=== PATIENT | male | born 1960 | race American Indian/Alaskan Native ===

== ENCOUNTER → 2019-08-14 | Outpatient (CLI) | payer OTHER ==
[~2019-08-14] MED LIST: ACIDOPHILUS1 EAC1 PO; ASPI81CH PO; ATOR20 PO; CHOL10002 PO; CIPR500 PO; METR500 PO; Omeprazole20 M1 PO
== END | disposition home or self-care (01) ==
LOC: LAB 19:38 → LAB SHORT 19:38
DX: L08.9 Local infection of the skin and subcutaneous tissue, unspecified (principal)
CPT/HCPCS: 87070; 87075; 87205

== ENCOUNTER 2020-11-25 21:47 | Inpatient (IN) | payer OTHER ==
[~2020-11-25] VITALS: Ht 175.3 cm; Wt 95.6 kg
[2020-11-25 22:43] LABS: BASOPHILS ABSOLUTE AUTO 0.05 K/mm3 (0.00-0.23); BASOPHILS PERCENT AUTO 1 % (0-2); EOSINOPHILS ABSOLUTE AUTO 0.32 K/mm3 (0.00-0.68); EOSINOPHILS PERCENT AUTO 3 % (0-6); Hematocrit 43.3 % (37.0-53.0); Hemoglobin 14.4 g/dL (13.5-17.5); IMMATURE GRAN ABSOLUTE AUTO 0.06 K/mm3 (0.00-0.10); IMMATURE GRAN PERCENT AUTO 1 % (0-1); LYMPHOCYTES ABSOLUTE AUTO 2.75 K/mm3 (0.84-5.20); LYMPHOCYTES PERCENT AUTO 26 % (21-46); MONOCYTES ABSOLUTE AUTO 1.27 K/mm3 (0.16-1.47); MONOCYTES PERCENT AUTO 12 % (4-13); Mean Corpuscular HGB 31.9 pg (26.0-34.0); Mean Corpuscular HGB Conc 33.3 g/dL (31.5-36.5); Mean Corpuscular Volume 96 fL (80-100); Mean Platelet Volume 9.5 fL (9.1-12.4); NEUTROPHILS ABSOLUTE AUTO 6.09 K/mm3 (1.96-9.15); NEUTROPHILS PERCENT AUTO 58 % (41-73); Platelet Count 230 K/mm3 (150-400); RDW Coefficient Variation 13.7 % (11.7-14.2); RDW Standard Deviation 48.6 fL (35.1-46.3); Red Blood Cell Count 4.52 M/mm3 (4.30-5.90); White Blood Cell Count 10.54 K/mm3 (4.00-11.30)
[2020-11-25 23:00] LABS: Alanine Aminotransfer (ALT/SGP 44 U/L (12-78); Albumin, Blood 3.5 g/dL (3.4-5.0); Albumin/Globulin Ratio 0.9 (0.8-1.8); Alk Phos 102 U/L (50-136); Anion Gap 2 mmol/L (6-16); Aspartate Aminotrans (AST/SGOT 21 U/L (12-37); Bilirubin, Total 0.3 mg/dL (0.1-1.0); Blood Urea Nitrogen 14 mg/dL (8-24); Bun/Creatinine Ratio 19.4 (12.0-20.0); CO2, Blood 29 mmol/L (21-32); Calcium, Blood 9.3 mg/dL (8.5-10.1); Chloride, Blood 109 mmol/L (98-108); Creatinine, Blood 0.72 mg/dL (0.60-1.20); Glomerular Filtration Rate >60 (60-); Glucose, Blood 101 mg/dL (70-99); Potassium, Blood 4.1 mmol/L (3.5-5.5); Sodium, Blood 140 mmol/L (136-145); Total Protein, Blood 7.5 g/dL (6.4-8.2)
[2020-11-26] MEDS ORDERED: ATOR40TA PO (00:59)
[2020-11-26] MEDS ORDERED: Vitamin B Comple1 EA PO (04:03)
[2020-11-26] MEDS ORDERED: LOSA25 PO (04:04)
--- NOTE | 2020-11-26 04:21 | NUR ---
ADMIT NEW ER ADMIT WITH PARTIAL BOWEL OBSTRUCTION. PT ARRIVAL TO UNIT VIA W/C AND INDEPENDENTLY AMBULATED TO BED. ALERT AND ORIENTED. REPORTS ABD PAIN IS TOLERABLE AT THIS TIME. BTS HYPERACTIVE X4 QUADRANTS AND ABD MODERATELY DISTENDED. NPO AT THIS TIME. IVF INFUSING FROM ER. ORIENTED TO ROOM AND CALL LIGHT. WILL CONT TO MONITOR.
--- NOTE | 2020-11-26 07:10 | NUR ---
RECVD REPORT FROM PREVIOUS SHIFT MURIEL CROWLEY. PT SLEEPING IN BED, BED IN LOWEST POSITION, BED RAILS UP X 2, CALL LIGHT WITHIN REACH. WHITEBOARD UPDATED.
--- NOTE | 2020-11-26 08:11 | NUR ---
pt going out for a walk
--- NOTE | 2020-11-26 10:35 | NUR ---
dr flores consulting with pt and spouse
--- NOTE | 2020-11-26 14:14 | NUR ---
daysurgery rn in with pt prepping for surgery
--- NOTE | 2020-11-26 14:25 | NUR ---
PT TAKEN TO DAYSURGERY FOR PROCEDURE VIA STRETCHER
--- NOTE | 2020-11-26 14:37 | NUR ---
History, Chart, Medications and Allergies reviewed before start of procedure. Lungs clear T/O to Auscultation. Patient confirms NPO status and agrees with scheduled surgery. Pre-Op teaching done. Pt verbalizes understanding.
--- NOTE | 2020-11-26 17:15 | NUR ---
pt is currently still in the OR. Spouse is in pt's room awaiting return.
--- NOTE | 2020-11-26 20:58 | NUR ---
PT ARRIVED FROM PACU AT APPROX 2024 S/P R HEMICOLECTOMY. PT A&O X4. VS WNL. O2 93% ON 3L VIA NC. MIDLINE NOE C/D/I WITH SMALL AMOUNT OF SHADOWING. PT NUMB FROM UPPER CHEST TO BLE. REPORTS PAIN 0/10. DENIES N/V. TOLERATING A SMALL AMOUNT OF ICE CHIPS. UNABLE TO WIGGLE TOES. FULL ROM TO BUE'S. ABLE TO WIGGLE FINGERS. ORDER FOR EPIDURAL. EPIDURAL C/D/I. WILL START PER ORDERS.
--- NOTE | 2020-11-26 22:30 | NUR ---
ANESTHESIOLOGIST DR. ORTEGA NOTIFIED AT THIS TIME OF PT'S RECENT BP'S OF 90/50'S. AWARE THAT EPIDURAL HAS NOT BEEN STARTED SINCE ARRIVAL TO UNIT FROM PACU. INFORMED THAT PT HAS DENIED PAIN SINCE ARRIVAL AND DENIES SENSATION FROM UPPER ABD TO BILATERAL FEET. ORDER TO START EPIDURAL AT 0000 AND KEEP THE SAME RATE ORDERED IN [facility].
--- NOTE | 2020-11-27 04:06 | NUR ---
SHIFT SUMMARY: PT HAS BEEN STABLE SINCE ARRIVAL FROM PACU. POD#1 FOR EX LAP AND RIGHT HEMICOLECTOMY. A&O X4. VS WNL. O2 >93% ON 3LO2 VIA NC. MIDLINE NOE DRESSING INTACT AND COMPRESSED. PAIN BEING WELL MANAGED AT 2/[address]. EPIDURAL STARTED AT 0000. PT REPORTS NUMBNESS FROM L1-L3 WITH SLIGHTLY MORE SENSATION TO RLE. SCD'S IN PLACE. IVF INFUSING PER ORDERS. PT TOLERATING A SMALL AMOUNT OF WATER+ICE CHIPS OVER NIGHT. DENIES N/V.
[2020-11-27 04:54] LABS: BASOPHILS ABSOLUTE AUTO 0.02 K/mm3 (0.00-0.23); BASOPHILS PERCENT AUTO 0 % (0-2); EOSINOPHILS PERCENT AUTO 0 % (0-6); Hematocrit 36.6 % (37.0-53.0); Hemoglobin 12.1 g/dL (13.5-17.5); IMMATURE GRAN ABSOLUTE AUTO 0.07 K/mm3 (0.00-0.10); IMMATURE GRAN PERCENT AUTO 0 % (0-1); LYMPHOCYTES ABSOLUTE AUTO 1.12 K/mm3 (0.84-5.20); LYMPHOCYTES PERCENT AUTO 6 % (21-46); MONOCYTES ABSOLUTE AUTO 0.91 K/mm3 (0.16-1.47); MONOCYTES PERCENT AUTO 5 % (4-13); Mean Corpuscular HGB 32.1 pg (26.0-34.0); Mean Corpuscular HGB Conc 33.1 g/dL (31.5-36.5); Mean Corpuscular Volume 97 fL (80-100); Mean Platelet Volume 9.6 fL (9.1-12.4); NEUTROPHILS ABSOLUTE AUTO 15.78 K/mm3 (1.96-9.15); NEUTROPHILS PERCENT AUTO 88 % (41-73); Platelet Count 182 K/mm3 (150-400); RDW Coefficient Variation 13.7 % (11.7-14.2); RDW Standard Deviation 48.8 fL (35.1-46.3); Red Blood Cell Count 3.77 M/mm3 (4.30-5.90)
[2020-11-27 05:12] LABS: Anion Gap 6 mmol/L (6-16); Blood Urea Nitrogen 13 mg/dL (8-24); Bun/Creatinine Ratio 21.3 (12.0-20.0); CO2, Blood 24 mmol/L (21-32); Chloride, Blood 109 mmol/L (98-108); Creatinine, Blood 0.61 mg/dL (0.60-1.20); Glomerular Filtration Rate >60 (60-); Glucose, Blood 159 mg/dL (70-99); Potassium, Blood 4.5 mmol/L (3.5-5.5); Sodium, Blood 139 mmol/L (136-145)
--- NOTE | 2020-11-27 07:30 | NUR ---
pt denies nausea no abd dist pt reports pain 4/10 inc numbness to the left side no flatus
--- NOTE | 2020-11-27 14:15 | NUR ---
dr flores by earlier pt wanting a wc to go out and smoke unable to go out with a epidural
--- NOTE | 2020-11-27 15:31 | NUR ---
pt stated he passed gas req a donut to sit on
--- NOTE | 2020-11-27 17:34 | NUR ---
pt passing more gas pt given to try more to eat for his cl dinner still no nausea
[2020-11-27] MEDS ORDERED: Ventolin/Prove6.7 GM (20:01)
--- NOTE | 2020-11-27 20:46 | NUR ---
PT W/BILATERAL EXPIRATORY WHEEZE, SHALLOW BREATHS. ENCOURAGED DB&I. IS PROVIDED AND EDUCATED. PT STATES HAS USED AN IS IN THE PAST AND THAT HE USES AN ALBUTEROL INHALER AT BEDTIME, 2 PUFFS. CALLED TO VERIFY INAHLER. CONTACTED ON-CALL FOR ORDER, PLACED IN AUG. RT NOTIFIED. WCTM.
--- NOTE | 2020-11-28 06:10 | NUR ---
SHIFT SUMMARY: COLEMAN IS A&OX4. VSS, NO ACUTE EVENTS OVERNIGHT. EPIDURAL PATENT, HE REPORTS GOOD PAIN CONTROL WITH THE EPIDURAL. HE IS TOLERATING ICE CHIPS AND CLEARS WELL, REPORTS PASSING GAS. HE MOVES HIMSELF WELL IN BED, DOES REPORT INCREASED PAIN WITH MOVEMENT. WILD PATENT, NOE TO MIDLINE PATENT, SMALL AMT DRAINGE UNCHANGED. HE IS ABLE TO MAKE HIS NEEDS KNOWN. HE IS LYING IN BED WITH THE CALL LIGHT IN REACH. WILL REPORT TO DAY SHIFT RN.
--- NOTE | 2020-11-28 16:25 | NUR ---
SHIFT SUMMARY PT A&OX4, VSS/2LNC, POD2 HEMICOLECTOMY W/NOE DRY/INTACT/WNL, FLATUS+, NO BM. EPIDURAL MANAGING PAIN. WILD PATENT & DRAINING YELLOW URINE, STAT LOCK ON, OFF FLOOR. ROSIO PO CLEAR LIQUID DIET. PT ABLE TO SIT ON SIDE OF BED AND STAND TRANSFER TO CHAIR, 2 PP MAX ASSIST. WILL REPORT TO ONCOMING NOC RN.
--- NOTE | 2020-11-28 20:08 | NUR ---
RECEIVED REPORT AND ASSUMED CARE OF PT. HE IS SITTING UP IN BED, REPORTS ADEQUATE PAIN CONTROL WITH THE EPIDURAL. TOLERATING PO INTAKE WELL. HE DENIES ANY NEEDS AT THIS TIME. WCTM.
--- NOTE | 2020-11-29 05:10 | NUR ---
SHIFT SUMMARY: COLEMAN IS A&OX4. VSS, NO ACUTE EVENTS OVERNIGHT. EPIDURAL PATENT, LEVEL OF SENSATION UNCHANGED, PAIN CONTROLLED. HE IS TOLERATING PO INTAKE WELL, WILD PATENT, NOE UNCHANGED. HE IS LYING IN BED WITH THE CALL LIGHT IN REACH. WILL REPORT TO DAY SHIFT RN.
--- NOTE | 2020-11-29 07:32 | NUR ---
min pain / dec o2 to 1 l nc biox 98% will wean 02 no bm passing flatus
--- NOTE | 2020-11-29 08:50 | NUR ---
biox 95% ra pt done eating breakfast estefani well
--- NOTE | 2020-11-29 10:30 | NUR ---
biox 97% ra awaiting dr flores re po pain meds message left earlier
--- NOTE | 2020-11-29 14:04 | NUR ---
DR SWIFT TO SEE PT REMOVED EPIDURAL EARLIER DR AYERS BY TO SEE PT PO NORCO GIVEN
--- NOTE | 2020-11-29 15:46 | NUR ---
PT OUT OF THE SHOWER ASSISTED HIM USING FWW AND GOING SLOW
--- NOTE | 2020-11-29 18:25 | NUR ---
pt done eating dinner estefani diet no bm yet pain 0/10 with po pain mesd
--- NOTE | 2020-11-29 18:55 | NUR ---
noyola cath removed pt sitting on edge of bed watching tv
--- NOTE | 2020-11-30 07:43 | NUR ---
SUMMARY PT CONT WITH NO BM YET.FLATUS+. PT REQUIRED 1 DOSE DILUADID THIS AM FOR BREAK THROUGH PAIN HE DID NOT UNDERSTAND PRN ORDER FOR PO MEDS VS ROUTINE ORDER AND NOT BEING WOKE FOR MEDS.
[2020-11-30] MEDS ORDERED: Norco 5-325 Ta1 EACH PO (10:06)
--- NOTE | 2020-11-30 10:42 | NUR ---
DISCHARGE: PACKET PRINTED AND PT EDUCATED. NOE WOUND VAC TO REMAIN ON PER DR. GOLDMAN AND REMOVED AT FOLLOW UP. IV DC'D WNL. PT SPOUSE REPORTS THAT NARCOTIC SCRIPT ALREADY FILLED YESTERDAY. NO NEED TO FAX MEDS. PT DENIED NEED FOR WHEELCHAIR, LEFT UNIT ON FOOT WITH AT ABOUT 1035.
[2020-12-26 12:58] LABS: Performing Lab MMR PROTEINS; Test Name SYMBIODX
== END 2020-11-30 10:35 | disposition home or self-care (01) | DRG 331 ==
LOC: ER 21:47 → SURS 21:48 → ER 11-26 03:22 → SURS 11-26 03:22
PROVIDERS: Emergency Medicine; Internal Medicine Hematology & Oncology; ADMIT Surgery
PROC: 0DTF0ZZ Resection of Right Large Intestine, Open Approach (ICD-10-PCS; principal; 2020-11-26 13:45)
DX: C18.4 Malignant neoplasm of transverse colon (principal); E78.00 Pure hypercholesterolemia, unspecified; Z98.890 Other specified postprocedural states; Z88.8 Allergy status to other drugs, medicaments and biological substances; Z79.899 Other long term (current) drug therapy; J44.9 Chronic obstructive pulmonary disease, unspecified; G47.33 Obstructive sleep apnea (adult) (pediatric); I10 Essential (primary) hypertension
CPT/HCPCS: 36415; 74177; 80048; 80053; 83690; 85025; 88309; 94640; 94760; 96374; 96375; 96376; 99285-25; A9270; G0378; J0295; J1100; J1170; J1650; J1885; J2250; J2370; J2405; J2704; J3010; J7030; J7120; Q9967

== ENCOUNTER 2021-01-23 07:21 | Day surgery (SDC) | payer OTHER ==
[~2021-01-23] VITALS: Ht 175.3 cm; Wt 92.4 kg
[~2021-01-23 07:21] MED LIST changes: +ATOR40TA PO; +IBUP400 PO; +LOSA25 PO; +Norco 5-325 Ta1 EACH PO; +Ventolin/Prove6.7 GM INH; +Vitamin B Comple1 EA PO
--- NOTE | 2021-01-23 07:33 | NUR ---
INTO [facility] ADMISSION STARTED.Ambulatory in Day Surgery. History, Chart, Medications and Allergies reviewed before start of procedure. Patient confirms NPO status and agrees with scheduled surgery. Patient States Post-Procedure ride home has been arranged.
--- NOTE | 2021-01-23 10:56 | NUR ---
RECEIVED REPORT FROM BANDAR PHAM RN.
--- NOTE | 2021-01-23 11:41 | NUR ---
PATIENT MEETS CRITERIA FOR DISCHARGE, DISCHARGE INSTRUCTIONS GIVEN AND PT STATES UNDERSTANDING. RIDE SCHEDULED TO BE HERE AT 1200. PATIENT WILL CONTINUE TO BE IN STEP AND WILL CONTINUE TO MONITOR.
== END 2021-01-23 23:31 | disposition home or self-care (01) ==
LOC: ORSCMMR 07:21 → ORD 10:00 → ORSCMMR 23:31
PROVIDERS: Surgery
PROC: 05HM33Z Insertion of Infusion Device into Right Internal Jugular Vein, Percutaneous Approach (ICD-10-PCS; principal; 2021-01-23 09:15)
DX: C18.4 Malignant neoplasm of transverse colon (principal); K21.9 Gastro-esophageal reflux disease without esophagitis; E66.9 Obesity, unspecified; Z68.30 Body mass index [BMI] 30.0-30.9, adult; Z79.899 Other long term (current) drug therapy
CPT/HCPCS: 77001; A9270; C1788; J0690; J1100; J1642; J2405; J2704; J3010; J7120

== ENCOUNTER 2022-03-17 11:53 | Day surgery (SDC) | payer OTHER ==
[~2022-03-17] VITALS: Ht 177.8 cm; Wt 97.0 kg
== END 2022-03-17 13:36 | disposition home or self-care (01) ==
LOC: ORSCSDS 11:53
PROVIDERS: Surgery
PROC: 0DJD8ZZ Inspection of Lower Intestinal Tract, Via Natural or Artificial Opening Endoscopic (ICD-10-PCS; principal; 2022-03-17 13:00)
DX: Z85.038 Personal history of other malignant neoplasm of large intestine (principal); K57.30 Diverticulosis of large intestine without perforation or abscess without bleeding; E78.00 Pure hypercholesterolemia, unspecified; F17.210 Nicotine dependence, cigarettes, uncomplicated; Z79.899 Other long term (current) drug therapy
CPT/HCPCS: 82947; J0461; J2405; J2704

== ENCOUNTER 2022-07-10 15:20 | Emergency (ER) | payer OTHER ==
[~2022-07-10] VITALS: Ht 175.3 cm; Wt 99.8 kg
[2022-07-10 15:58] LABS: BASOPHILS ABSOLUTE AUTO 0.04 K/mm3 (0.00-0.23); BASOPHILS PERCENT AUTO 0 % (0-2); EOSINOPHILS PERCENT AUTO 1 % (0-6); Hematocrit 43.9 % (37.0-53.0); Hemoglobin 15.2 g/dL (13.5-17.5); IMMATURE GRAN ABSOLUTE AUTO 0.05 K/mm3 (0.00-0.10); IMMATURE GRAN PERCENT AUTO 1 % (0-1); LYMPHOCYTES ABSOLUTE AUTO 2.54 K/mm3 (0.84-5.20); LYMPHOCYTES PERCENT AUTO 27 % (21-46); MONOCYTES ABSOLUTE AUTO 0.98 K/mm3 (0.16-1.47); MONOCYTES PERCENT AUTO 11 % (4-13); Mean Corpuscular HGB 33.6 pg (26.0-34.0); Mean Corpuscular HGB Conc 34.6 g/dL (31.5-36.5); Mean Corpuscular Volume 97 fL (80-100); Mean Platelet Volume 9.8 fL (9.1-12.4); NEUTROPHILS ABSOLUTE AUTO 5.59 K/mm3 (1.96-9.15); NEUTROPHILS PERCENT AUTO 60 % (41-73); Platelet Count 186 K/mm3 (150-400); RDW Coefficient Variation 14.1 % (11.7-14.2); RDW Standard Deviation 50.4 fL (35.1-46.3); Red Blood Cell Count 4.52 M/mm3 (4.30-5.90)
[2022-07-10 16:30] LABS: Albumin, Blood 3.4 g/dL (3.4-5.0); Albumin/Globulin Ratio 0.9 (0.8-1.8); Bilirubin, Total 0.4 mg/dL (0.1-1.0); Bun/Creatinine Ratio 15.5 (12.0-20.0); Calcium, Blood 9.3 mg/dL (8.5-10.1); Creatinine, Blood 0.78 mg/dL (0.60-1.20); Globulin, Blood 3.9 g/dL (2.2-4.0); Potassium, Blood 4.1 mmol/L (3.5-5.5); Total Protein, Blood 7.3 g/dL (6.4-8.2)
[2022-07-10] MEDS ORDERED: GLIP5 PO (18:15)
== END 2022-07-10 18:10 | disposition home or self-care (01) ==
LOC: ER 15:20
PROVIDERS: Physician Assistant
DX: M54.2 Cervicalgia (principal); F17.210 Nicotine dependence, cigarettes, uncomplicated; Z79.899 Other long term (current) drug therapy
CPT/HCPCS: 36415; 70491; 80053; 85025; Q9967

== ENCOUNTER → 2022-08-27 | Outpatient (CLI) | payer OTHER ==
[~2022-08-27] MED LIST changes: +GLIP5 PO
[2022-08-29 10:09] LABS: HSV-1 DNA Negative (Negative); HSV-2 DNA Positive (Negative)
== END | disposition home or self-care (01) ==
LOC: LAB 15:14 → LAB SHORT 15:14
PROVIDERS: Physician Assistant
DX: R21 Rash and other nonspecific skin eruption (principal)
CPT/HCPCS: 87529; 87798